=== PATIENT | female | born 1985 | race Caucasian/White ===

== ENCOUNTER → 2018-12-09 | Outpatient (CLI) | payer BC ==
--- NOTE | 2018-12-09 17:35 | KCIC ---
Examination: Obstetric ultrasound limited HISTORY: History of no heart tones in office COMPARISON: None available. FINDINGS: Single living intrauterine identified with heart rate of 152 bpm. Amniotic fluid index is 7.7 with largest pocket measuring 2.2 cm. movement is seen. Cardiac activity seen. The biparietal diameter measures 2.9 cm corresponding to 15 weeks and 2 days. Head circumference measures 10.6 cm corresponding to 15 weeks and 1 day. Abdominal circumference measures 9.3 cm corresponding to 15 weeks and 4 days. Femur length measures 1.7 cm corresponding to 15 weeks and 1 day. Ultrasound gestational age 15 weeks and 2 days with expected date of delivery 05/31/2019. IMPRESSION: Single living intrauterine with heart rate of 152 bpm. Amniotic fluid index is 7.7. Electronically signed by: Rafael Miller MD (12/09/2018 5:32 PM) [id number]
== END | disposition home or self-care (01) ==
LOC: KCIC US 10:28
PROVIDERS: ATTEND Family Medicine
DX: Z34.82 Encounter for supervision of other normal pregnancy, second trimester (principal); Z3A.15 15 weeks gestation of pregnancy
CPT/HCPCS: 76815

== ENCOUNTER → 2019-01-09 | Outpatient (CLI) | payer BC, OTHER ==
--- NOTE | 2019-01-09 12:11 | RAD ---
Exam performed: OB sonogram greater than 14 weeks. History: Unsure of dates Date of Service: 01/09/2019 ,comparison: December 09, 2018. Technique: Transabdominal. Findings: Single intrauterine fetus is seen in cephalic presentation.The maturity is as follows. BPD 4.26 cm (18 weeks and 6 days) Head circumference 16.05 cm (18 weeks and 6 days) Abdominal circumference 14.36 cm (19 weeks and 5 days) Femur length 3.05 cm (19 weeks and 3 days) HC to AC ratio 1.12. heart rate measures 143 beats per minute. There is adequate amniotic fluid volume . Composite maturity is 19 weeks and 2 days , corresponding to the STEW off 06/03/2019. Maturity by LMP is 19 weeks and 5 days with a STEW of 05/31/2019. Cervix measures 4.0 cm. There is tiny amount of fluid in the upper cervical canal. Estimated weight is 295 grams. anatomy including 4 chamber heart, abdominal wall cord insertion fluid-filled stomach and urinary bladder, bilateral kidneys, spine and brain appears normal. Placenta is posterior wall and low lying Impression: Single live intrauterine fetus in cephalic presentation of maturity 19 weeks and 2 days. Tiny amount of fluid in the endocervical canal raises question for mild incompetence. Short-term interval follow-up exam may be obtained to ensure interval stability Electronically signed by: Stella Ellison MD (01/09/2019 12:08 PM) [facility]
== END | disposition home or self-care (01) ==
LOC: US 10:42
PROVIDERS: ATTEND Family Medicine
DX: O26.842 Uterine size-date discrepancy, second trimester (principal); Z3A.19 19 weeks gestation of pregnancy
CPT/HCPCS: 76805

== ENCOUNTER → 2019-01-24 | Outpatient (CLI) | payer BC, OTHER ==
--- NOTE | 2019-01-25 02:06 | RAD ---
Limited OB ultrasound dated 01/24/2019. No comparison available. Clinical data indication: Check cervix. FINDINGS: Limited transabdominal and transvaginal imaging was performed of the cervix. The cervical length is estimated at 5.4 cm on the transvaginal scan. Fetus is in breech presentation. The placenta is posterior in location with no evidence of placental previa. heart rate 130 bpm. The anatomic fluid volume appears appropriate. IMPRESSION: Cervix is closed and estimated at about 5.4 cm in length. Electronically signed by: Bari Hill MD (01/25/2019 2:03 AM) [id number]
== END | disposition home or self-care (01) ==
LOC: US 14:55
PROVIDERS: ATTEND Family Medicine
DX: O32.1XX0 Maternal care for breech presentation, not applicable or unspecified (principal)
CPT/HCPCS: 76815